=== PATIENT | male | born 1960 | race Two or more races ===

== ENCOUNTER 2021-02-02 13:50 | Emergency (ER) | payer BC ==
[~2021-02-02] VITALS: Ht 180.3 cm; Wt 69.9 kg
[2021-02-02 14:01] VITALS: BP_SYST 147
[2021-02-02] MEDS ORDERED: DIAZEPAM 5 MG TABLET (VALIUM) PO ONE (14:45)
[2021-02-02] MEDS ORDERED: KETOROLAC TROMETHAMINE 60 MG/2 ML VIAL IM ONE (15:30)
[2021-02-02] MEDS ORDERED: SOM350 PO (16:27)
[2021-02-02] MEDS ORDERED: IBUP-1969 PO (16:27)
[2021-02-02 16:33] VITALS: BP_SYST 136
== END 2021-02-02 16:32 | disposition home or self-care (01) ==
LOC: SED 13:50
DX: S39.012A Strain of muscle, fascia and tendon of lower back, initial encounter (principal); E78.00 Pure hypercholesterolemia, unspecified; Z85.9 Personal history of malignant neoplasm, unspecified; W10.8XXA Fall (on) (from) other stairs and steps, initial encounter; Y93.89 Activity, other specified; Y92.89 Other specified places as the place of occurrence of the external cause; Y99.8 Other external cause status
CPT/HCPCS: 72110; 96372; 99283; J1885